=== PATIENT | male | born 1970 | race African-American/Black ===

== ENCOUNTER 2016-11-14 17:46 | Emergency (ER) | payer SELFPAY ==
[~2016-11-14] VITALS: Ht 175.3 cm; Wt 72.2 kg
[~2016-11-14 17:46] MED LIST: FLEXERIL10 MG PO; LACTULOSE10 GM/151 PO; MEDROL DOSEPAK4 MG PO; NAPROXEN500 MG PO; PERCOCET 5/31 TABLET PO; ZOLPIDEM TARTRA10 MG PO
[2016-11-14] MEDS ORDERED: KEFLEX500 MG PO (21:04)
[2016-11-14] MEDS ORDERED: NORCO 10/3251 TABLET PO (21:29)
[2016-11-14 21:30] VITALS: BP 162/85
== END 2016-11-14 21:31 | disposition home or self-care (01) ==
LOC: EME 17:46
PROC: 0HQGXZZ Repair Left Hand Skin, External Approach (ICD-10-PCS; principal; 2016-11-14)
PROC: 2W3 Placement, Anatomical Regions, Immobilization (ICD-10-PCS; 2016-11-14)
DX: S61.012A Laceration without foreign body of left thumb without damage to nail, initial encounter (principal); W26.0XXA Contact with knife, initial encounter
CPT/HCPCS: 73140; 99281; 99284; J0690; S0020